=== PATIENT | female | born 1940 | race Caucasian/White ===

== ENCOUNTER → 2024-10-02 | Outpatient (CLI) | payer MEDICARE, BC, SELFPAY ==
[2024-10-02 17:42] LABS: Collection Type, Urine Clean Catch
[2024-10-02 17:56] LABS: Basophils % (Auto) 1 % (0-2.5); Eosinophils % (Auto) 1 % (0-10); Hematocrit 33.3 % (36.0-46.0); Hemoglobin 11.5 g/dL (12.0-16.0); Immature Granulocytes % (Auto) 0 % (0-0); Immature Granulocytes Auto 0.01 Thou/mm3 (0.00-0.00); Lymphocytes # (Auto) 1.5 Thou/mm3 (1.0-4.8); Lymphocytes % (Auto) 25 % (10-50); Mean Corpuscular HGB Conc 34.5 g/dl (31.0-37.0); Mean Corpuscular Hemoglobin 30.3 pg (25.0-35.0); Mean Corpuscular Volume 88 fL (80-100); Monocytes # (Auto) 0.6 Thou/mm3 (0.0-0.8); Monocytes % (Auto) 10 % (0-12); Neutrophils # (Auto) 3.8 Thou/mm3 (1.8-7.7); Neutrophils % (Auto) 64 % (37-80); Nucleated Red Blood Cell % 0 /100 WBC (0); Platelet Count 239 Thou/mm3 (140-440); RDW Standard Deviation 43.8 fL (36.4-46.3); Red Blood Count 3.79 Miln/mm3 (4.00-5.20)
[2024-10-02 18:00] LABS: Bilirubin,Urine Negative (Negative); Blood,Urine Negative (Negative); Clarity,Urine Clear (Clear/Hazy); Color,Urine Colorless (Lt Yel-Yel); Glucose, Urine Negative (Negative); Ketones,Urine Negative (Negative); Leukocyte Esterase,Urine Positive (Negative); Nitrite,Urine Negative (Negative); Protein,Urine Negative (Neg - Trace); RBC,Urine 1 /hpf (0-3); Specific Gravity,Urine 1.005 (1.001-1.035); Squamous Epithelial Cell,Urine < 1 /hpf (0-5); Urobilinogen,Urine Negative mg/dL (0.0-1.0); WBC,Urine 4 /hpf (0-5)
[2024-10-02 18:18] LABS: Alanine Aminotransferase 20 U/L (10-49); Albumin, Serum 4.6 gm/dL (3.4-4.8); Albumin/Globulin Ratio 1.8 (1.2-2.2); Alkaline Phosphatase 61 U/L (46-116); Anion Gap 4 (7-16); Aspartate Amino Transferase 26 U/L (0-34); BUN/Creatinine Ratio 18 Ratio (12-20); Bilirubin,Total 0.5 mg/dL (0.3-1.2); Blood Urea Nitrogen 20 mg/dL (9-23); Calcium 9.9 mg/dL (8.3-10.6); Calcium (Corrected) 9.9 mg/dL (8.5-10.1); Carbon Dioxide 26.3 mMol/L (20.0-31.0); Chloride 105 mMol/L (98-107); Creatinine (Component) 1.1 mg/dL (0.6-1.3); Free T4 (Free Thyroxine) 1.08 ng/dL (0.89-1.76); Globulin 2.6 gm/dL (2.3-3.5); Glucose 86 mg/dL (74-106); Osmolality,Calculated 271 (275-295); Potassium 4.5 mMol/L (3.4-5.1); Sodium 135 mMol/L (136-145); Thyroid Stimulating Hormone 13.26 uIU/mL (0.55-4.78); Total Protein 7.2 gm/dL (5.7-8.2); eGFR 49 See Note
== END | disposition home or self-care (01) ==
LOC: COPL 17:10
PROVIDERS: PCP Family Medicine; Referring Provider Family Medicine; Visit Provider Family Medicine
DX: E03.9 Hypothyroidism, unspecified (principal); M54.50 Low back pain, unspecified
CPT/HCPCS: 36415; 80053; 81001; 84439; 84443; 85025

== ENCOUNTER → 2025-02-01 | Outpatient (CLI) | payer MEDICARE, BC, SELFPAY ==
--- NOTE | 2025-02-01 15:58 | XR_ITS ---
Examination: PA lateral chest 2 views TECHNIQUE: Upright PA lateral chest 2 views Exam date and time: February 01, 2025 1659 hours Comparison April 14, 2012 INDICATIONS: Coughing one week. FINDINGS: COPD with moderate hyperexpansion Normal heart size No pneumonia or pulmonary edema IMPRESSION: COPD No pneumonia identified
== END | disposition home or self-care (01) ==
LOC: CDIM 15:51
PROVIDERS: Referring Provider Nurse Practitioner Family; Visit Provider Nurse Practitioner Family
DX: J44.9 Chronic obstructive pulmonary disease, unspecified (principal)
CPT/HCPCS: 71046

== ENCOUNTER → 2025-02-02 | Outpatient (CLI) | payer MEDICARE, BC, SELFPAY ==
[2025-02-02 11:20] LABS: Basophils % (Auto) 0 % (0-2.5); Eosinophils % (Auto) 0 % (0-10); Hematocrit 34.5 % (36.0-46.0); Hemoglobin 11.9 g/dL (12.0-16.0); Immature Granulocytes % (Auto) 0 % (0-0); Immature Granulocytes Auto 0.02 Thou/mm3 (0.00-0.00); Lymphocytes % (Auto) 27 % (10-50); Mean Corpuscular HGB Conc 34.5 g/dl (31.0-37.0); Mean Corpuscular Hemoglobin 29.8 pg (25.0-35.0); Mean Corpuscular Volume 87 fL (80-100); Monocytes # (Auto) 0.5 Thou/mm3 (0.0-0.8); Monocytes % (Auto) 6 % (0-12); Neutrophils # (Auto) 4.7 Thou/mm3 (1.8-7.7); Neutrophils % (Auto) 65 % (37-80); Nucleated Red Blood Cell % 0 /100 WBC (0); Platelet Count 231 Thou/mm3 (140-440); RDW Standard Deviation 42.1 fL (36.4-46.3); Red Blood Count 3.99 Miln/mm3 (4.00-5.20); White Blood Count 7.2 Thou/mm3 (3.6-11.0)
[2025-02-02 11:31] LABS: Glucose Estimated Average 100 mg/dL (80-131); Hemoglobin A1C 5.1 % Hgb (4.8-6.0)
[2025-02-02 11:51] LABS: Folate 14.55 ng/mL (>5.38); Vitamin B12 536 pg/mL (211-911)
[2025-02-02 11:52] LABS: Alanine Aminotransferase 12 U/L (10-49); Albumin, Serum 4.4 gm/dL (3.4-4.8); Albumin/Globulin Ratio 1.6 (1.2-2.2); Alkaline Phosphatase 47 U/L (46-116); Anion Gap 8 (7-16); Aspartate Amino Transferase 29 U/L (0-34); BUN/Creatinine Ratio 9 Ratio (12-20); Bilirubin,Total 0.8 mg/dL (0.3-1.2); Blood Urea Nitrogen 12 mg/dL (9-23); Calcium 9.7 mg/dL (8.3-10.6); Calcium (Corrected) 9.7 mg/dL (8.5-10.1); Carbon Dioxide 24.7 mMol/L (20.0-31.0); Cardiac Risk Estimate 2.7 RATIO (3.7-5.6); Chloride 101 mMol/L (98-107); Cholesterol 318 mg/dL (132-200); Creatinine (Component) 1.3 mg/dL (0.6-1.3); Free T4 (Free Thyroxine) 0.27 ng/dL (0.89-1.76); Globulin 2.8 gm/dL (2.3-3.5); Glucose 79 mg/dL (74-106); HDL Cholesterol 117 mg/dL (40-60); LDL Cholesterol,Calculated 185 mg/dL (0-130); Osmolality,Calculated 266 (275-295); Potassium 3.7 mMol/L (3.4-5.1); Sodium 134 mMol/L (136-145); Thyroid Stimulating Hormone 78.48 uIU/mL (0.55-4.78); Total Protein 7.2 gm/dL (5.7-8.2); Triglycerides 80 mg/dL (30-150); eGFR 40 See Note
== END | disposition home or self-care (01) ==
PROVIDERS: PCP Nurse Practitioner Family; Referring Provider Nurse Practitioner Family; Visit Provider Nurse Practitioner Family
DX: Z13.1 Encounter for screening for diabetes mellitus (principal); Z13.220 Encounter for screening for lipoid disorders; E03.9 Hypothyroidism, unspecified; R53.81 Other malaise
CPT/HCPCS: 36415; 80053; 80061; 82607; 82746; 83036; 84439; 84443; 85025

== ENCOUNTER 2025-03-30 16:56 | Observation (INO) | payer MEDICARE, BC, SELFPAY ==
[2025-03-30 17:13] VITALS: BP 101/65; PULSE 84; RESP 18; TEMP 37.1; O2SAT 96; BMI 26.6
--- NOTE | 2025-03-30 17:19 | XR_ITS ---
Examination: AP chest single view TECHNIQUE: AP portable semiupright chest single view Date and time: March 31, 2025 0008 hours Comparison February 01, 2025 INDICATIONS: Chest pain today. FINDINGS: Normal heart size Lungs are clear. Osseous structures are intact IMPRESSION: No active disease
--- NOTE | 2025-03-30 17:19 | EKG_ITS ---
[facility] Test Date: 2025-03-30 Pat Name: LAKISHA MCCARTY Department: Room: - Gender: Female Assistant Operator: : [id number] Requested By: Ariadna Moreno Order Number: [id number] Reading MD: Ariadna Moreno Measurements Intervals [place] Rate: 72 P: 66 MT: 189 QRS: 42 QRSD: 92 T: 17 QT: 391 QTc: 430 Interpretive Statements SINUS RHYTHM NONSPECIFIC T-WAVE ABNORMALITY No previous ECG available for comparison /store/S0/[id number].pdf
--- NOTE | 2025-03-30 17:19 | PD.EDADULT ---
ED General RME/HPI General Chief complaint: Altered Mental Status Stated complaint: ALTERED Time Seen by Provider: 03/30/25 17:19 Arrival date/time: 03/30/25 16:56 RME / HPI RME / HPI narrative: 84 year old female with history of hypothyroidism presents to the ED BIBA from Dr. Guaman's office for evaluation of altered mental status. According to medics, the patient had an appointment with Dr. Guaman today, during which office staff noted that she appeared confused. Evidently, the patient?s PCP in [place] evaluated her three days ago, diagnosed her with a urinary tract infection and prescribed antibiotics. However, the patient denies recalling that visit. Medics report that while on scene, the patient was refusing to come to the hospital and required approximately 45 minutes of convincing to exit the office and an additional 45 minutes to exit her car. She was reportedly attempting to leave the scene, and PPD was contacted where they placed patient on a 5150 hold. Upon arrival, medics administered 5 mg of IN Versed as per orders, at which point the patient became cooperative and was transported to the ED for further evaluation. While in the ED, patient states she did not want to come here because I don't like this hospital . Related Data Home Medications ?Medication ?Instructions ?Recorded ?Confirmed levothyroxine 75 mcg tablet 75 mcg PO QDAY 02/13/22 02/13/22 Previous Rx's ?Medication ?Instructions ?Recorded cefuroxime axetil 500 mg tablet 500 mg PO BID #14 tabs 01/26/24 hydrocortisone acetate 25 mg 25 mg GA BID #24 ea 02/26/24 rectal suppository (Anucort-HC) psyllium husk 3.4 gram/5.4 gram 1 tbsp PO QDAY #660 grams 02/26/24 oral powder (Metamucil) calcium polycarbophil 625 mg 1,250 mg (2 x 625 mg) PO QDAY #30 08/26/24 tablet (FiberCon) tabs lactulose 20 gram/30 mL oral 20 g (30 mL) PO BID PRN 08/26/24 solution constipation #1,200 mL Allergies Allergy/AdvReac Type Severity Reaction Status Date / Time No Known Allergies Allergy Verified 03/30/25 19:29 Review of Systems Review of Systems Narrative Review of Systems: Unobtainable, patient refused to answer questions and participate in history taking. Past Medical History Past Medical History ENDOCRINE: Positive Endocrine Disorders and Hypothyroidism Family History FAMILY HISTORY: Positive Family Respiratory Disorders (sister-TB) and Family Cardiac Disorders (father-CVA, sister-CVA) Surgical History SURGICAL: Positive Lumpectomy (right armpit-unable to remember if 15-20 years ago) Social History SMOKING STATUS: Never smoker ED Exam Narrative Physical exam: GENERAL APPEARANCE:? alert and oriented x 4, well-developed, well-nourished, no acute distress HEENT: normocephalic, atraumatic NECK: supple LUNGS: no respiratory distress, normal effort HEART: good peripheral perfusion ABDOMEN: non distended EXTREMITIES:? atraumatic NEUROLOGIC: awake; alert and oriented x4; cranial nerves II-XII grossly intact PSYCHIATRIC:? appropriate mood and affect SKIN: warm, dry, normal color; no rashes Patient refused further examination. Course Quality Measures none Orders Category Date Time Status Editor Producer NOW Care 03/30/25 17:19 Active EKG (ED ONLY) *Do not use* NOW Care 03/30/25 17:[address] head/brain wo con Stat Exams 03/30/25 17:20 Ordered EKG (ED Only) Stat Exams 03/30/25 17:19 Draft XR chest 1V portable Stat Exams 03/30/25 17:19 Ordered CBC Stat Lab 03/30/25 20:02 Completed Comprehensive Metabolic Panel Stat Lab 03/30/25 20:02 Results Free T4 (Free Thyroxine) Stat Lab 03/30/25 20:02 Results Lactate (Lactic Acid) Stat Lab 03/30/25 20:02 Results Magnesium Stat Lab 03/30/25 20:02 Results Partial Thromboplastin Time Stat Lab 03/30/25 20:02 Completed Procalcitonin Stat Lab 03/30/25 20:02 Results Prothrombin Time with INR Stat Lab 03/30/25 20:02 Completed TSH [Thyroid Stimulating Hormone] Stat Lab 03/30/25 20:02 Results Troponin I Stat Lab 03/30/25 20:02 Results UA, C/S IF [Urinalysis, C/S if Indicated] Stat Lab 03/30/25 17:19 Ordered LORazepam [Ativan Inj] Med 03/30/25 19:57 Discontinued 1 mg IM X1 ONE LORazepam [Ativan Inj] Med 03/30/25 21:09 Discontinued 1 mg IM X1 ONE Vital Signs Vital signs: Vital Signs Temperature 98.7 F 03/30/25 17:13 Pulse Rate 84 03/30/25 17:13 Respiratory Rate 18 03/30/25 17:13 Blood Pressure 101/65 03/30/25 17:13 Pulse Oximetry (%) 96 03/30/25 17:13 Oxygen Delivery Method Room Air 03/30/25 17:13 Pulse ox is 96% on room air which is adequate. Discharge Plan Prescriptions/Referrals Prescriptions/Med Rec: No Action levothyroxine 75 mcg tablet 75 mcg PO QDAY Patient Comments: TAKE 1 TABLET BY MOUTH EVERY DAY cefuroxime axetil 500 mg tablet 500 mg PO BID Qty: 14 0RF hydrocortisone acetate [Anucort-HC] 25 mg suppository 25 mg GA BID Qty: 24 0RF Metamucil 3.4 gram/5.4 gram powder 1 tbsp PO QDAY Qty: 660 0RF Rx Instructions: mix into at least 8 oz of water or juice before administering lactulose 20 gram/30 mL solution 20 g PO BID PRN (Reason: constipation) Qty: 1200 0RF calcium polycarbophil [FiberCon] 625 mg tablet 1,250 mg PO QDAY Qty: 30 0RF Referrals: No Primary/Family,Physician [Primary Care Provider] - In 1 week Patient/Caregiver Discharge Instructions Print Language: Sami MDM Narrative MDM hospital course (for use when minimal MDM required): Tracey Pierre am scribing for and in the presence of Dr. Townsend. 1815: Patient refusing head CT 1835: Patient signed out to Dr. Escalante pending labs and final disposition. Clinical Information Provided by: EMS Medical Records reviewed [facility] and EMS Medical Records additional comments: I reviewed ED visit on 09/03/2024 Meds/Rx considered, not ordered None Labs/Rad/Tests considered, not ordered None Chronic Illness/Social Conditions which may negatively complicate care or outcome(s)-explain: None or not applicable EKG EKG not done (Not done during sign out ) Labs Labs: none Lab(s) Interpretation(s): No diagnostics resulted at time of sign out Imaging Imaging interpretation: none Imaging Interpretation(s): No diagnostics resulted at time of sign out Medication Administration(s) none Medication Administration History Discontinued Medications Lorazepam (Lorazepam 2 Mg/Ml Vial) 1 mg IM X1 ONE Stop: 03/30/25 19:58 Last Admin: 03/30/25 20:25 Dose: Not Given Documented By: SF Non-Admin Reason: Cancelled by Provider Lorazepam (Lorazepam 2 Mg/Ml Vial) 1 mg IM X1 ONE Stop: 03/30/25 21:10 Diagnosis Differential Diagnosis ED Complaint MDM: UTI, sepsis, hypoglycemia
--- NOTE | 2025-03-30 18:03 | PC.NURSE ---
PT IS REFUSING VITALS, GOWN, AND LAB DRAW AT THIS TIME
--- NOTE | 2025-03-30 18:09 | PC.CC ---
Patient was BIBA on a 5150-hold by [place] [employer] for Danger to Self and Others from [facility]. It was documented on the hold that patient was confused and not making sense. Patient to have a mental health evaluation upon being medically cleared.
--- NOTE | 2025-03-30 18:36 | PD.EDADDENDU ---
Emergency Room Addendum Addendum Narrative: 1830: Care assumed from Dr. Townsend, the previous shift emergency physician. Past medical, surgical, social and family history reviewed. Vitals and home medications reviewed. Results and treatment plan discussed. I will assume the care of the patient at this time and will follow the patient, pending CT head, CXR, EKG, labs, and 5150 hold. Please refer to the emergency department record for history and examination from initial visit. Observation began at 183 and was necessary in order to determine if the patient will be medically cleared for crisis evaluation. EKG done at 1847, NSR, rate of 72, normal axis, no ectopy, no acute ischemia, according to my interpretation. 194: Spoke with Alona, the patient's daughter, on the-phone. States the patient normally is AAOx4. She states the patient has been going to the doctor every other day for the last 2 weeks and has been seeking holistic treatment for her UTI and hypothyroidism because she doesn't like taking pills. Patient's exam is unremarkable except for the patient being mildly confused and uncooperative. 2106: Patient continues to be agitated, argumentative, and screaming at staff. She initially refused vital signs and bloodwork, but eventually agreed to them being performed. Ativan 1mg IM ordered. CBC is normal, PT and INR are normal, PTT is normal, Sodium is 133, Creatinine is 1.7 (which is new), Glucose is 167, Lactic Acid is 2.2, Troponin is normal, TSH is 96.21, Free T4 is 0.35. CXR, urinalysis and other labs are pending at this time. Procalcitonin is normal, UA is positive for a mild UTI. CXR shows normal cardiac silhouette, normal sharp diaphragmatic edge, no infiltrates, normal costophrenic angles, according to my interpretation. Synthroid and Rocephin ordered. Due to the patient's significant hypothyroidism, will consult an admission to the hospitalist. 0128: Discussed case with the resident physician, attending Dr. Vaughn from Hospitalist service regarding admission. Discussed patients ED course, exam findings, labs, and radiology results. The Hospitalist will evaluate the patient for admission. 0148: The Hospitalist requests a CT head. 0230: The Hospitalist accepts the patient for admission. At this time, observation has ended. Patient was observed for 8 hours.
--- NOTE | 2025-03-30 19:35 | PC.NURSE ---
PATIENT WAS BROUGHT TO ER FOR 51/50 DUE TO AMS GD. NO TRIAGE WAS NOT DONE WHEN PATIENT WAS BROUGHT TO ER BY THE DAY SHIFT NURSE. PATIENT STATES THAT SHE IS NOT SI OR NEEDS TO BE PLACED ON A 51/50. PATIENT REFUSED TO ANSWER THE [place] SCALE. DR CROSS AT BEDSIDE ASSESSING PATIENT.
[2025-03-30 19:48] VITALS: BP 139/75; PULSE 86; RESP 16; TEMP 36.6; O2SAT 99
[2025-03-30 20:16] LABS: Lactate (Lactic Acid) 2.2 mMol/L (0.4-2.0)
[2025-03-30 20:20] LABS: Basophils % (Auto) 1 % (0-2.5); Eosinophils % (Auto) 0 % (0-10); Hematocrit 33.4 % (36.0-46.0); Hemoglobin 12.2 g/dL (12.0-16.0); Immature Granulocytes % (Auto) 0 % (0-0); Immature Granulocytes Auto 0.02 Thou/mm3 (0.00-0.00); Lymphocytes # (Auto) 1.6 Thou/mm3 (1.0-4.8); Lymphocytes % (Auto) 26 % (10-50); Mean Corpuscular HGB Conc 36.5 g/dl (31.0-37.0); Mean Corpuscular Volume 85 fL (80-100); Monocytes # (Auto) 0.5 Thou/mm3 (0.0-0.8); Monocytes % (Auto) 7 % (0-12); Neutrophils # (Auto) 4.1 Thou/mm3 (1.8-7.7); Neutrophils % (Auto) 66 % (37-80); Nucleated Red Blood Cell % 0 /100 WBC (0); Platelet Count 208 Thou/mm3 (140-440); RDW Standard Deviation 42.8 fL (36.4-46.3); Red Blood Count 3.93 Miln/mm3 (4.00-5.20); White Blood Count 6.3 Thou/mm3 (3.6-11.0)
[2025-03-30 20:35] LABS: Partial Thromboplastin Time 25.4 Seconds (22.0-36.0); Prothrombin Time 10.7 Seconds (9.0-12.2)
[2025-03-30 21:03] LABS: Alanine Aminotransferase 21 U/L (10-49); Albumin, Serum 5.1 gm/dL (3.4-4.8); Albumin/Globulin Ratio 1.7 (1.2-2.2); Alkaline Phosphatase 53 U/L (46-116); Anion Gap 13 (7-16); Aspartate Amino Transferase 35 U/L (0-34); BUN/Creatinine Ratio 8 Ratio (12-20); Bilirubin,Total 0.7 mg/dL (0.3-1.2); Blood Urea Nitrogen 14 mg/dL (9-23); Calcium 9.6 mg/dL (8.3-10.6); Calcium (Corrected) 9.6 mg/dL (8.5-10.1); Carbon Dioxide 22.5 mMol/L (20.0-31.0); Chloride 98 mMol/L (98-107); Creatinine (Component) 1.7 mg/dL (0.6-1.3); Free T4 (Free Thyroxine) 0.35 ng/dL (0.89-1.76); Glucose 167 mg/dL (74-106); Magnesium 2.3 mg/dL (1.6-2.6); Osmolality,Calculated 270 (275-295); Potassium 3.9 mMol/L (3.4-5.1); Sodium 133 mMol/L (136-145); Thyroid Stimulating Hormone 96.21 uIU/mL (0.55-4.78); Total Protein 8.1 gm/dL (5.7-8.2); Troponin I < 0.020 ng/mL (0.0-0.045); eGFR 29 See Note
[2025-03-30 21:27] LABS: Bilirubin,Urine Negative (Negative); Blood,Urine Negative (Negative); Clarity,Urine Clear (Clear/Hazy); Collection Type, Urine Catheter; Color,Urine Colorless (Lt Yel-Yel); Glucose, Urine Negative (Negative); Ketones,Urine Negative (Negative); Leukocyte Esterase,Urine Positive (Negative); Nitrite,Urine Negative (Negative); Protein,Urine Trace (Neg - Trace); RBC,Urine 0 /hpf (0-3); Specific Gravity,Urine 1.012 (1.001-1.035); Urobilinogen,Urine Negative mg/dL (0.0-1.0)
[2025-03-30] MEDS: LORazepam 2 MG/ML VIAL 1 MG IM (21:27)
[2025-03-30 21:28] LABS: Procalcitonin < 0.04 ng/ml (0.0-0.49)
[2025-03-30 21:36] LABS: Transitional Epi Cells,Urine 4 /hpf (0-5)
[2025-03-30 21:37] LABS: Culture Indicated,Urine Yes; Squamous Epithelial Cell,Urine 4 /hpf (0-5); WBC,Urine 15 /hpf (0-5)
[2025-03-30 23:11] LABS: Reflex Lactate? Y
[2025-03-30 23:12] VITALS: BP 158/96; PULSE 69; RESP 18; TEMP 36.5; O2SAT 97
[2025-03-30 23:48] LABS: Lactic Acid, 3 HR 1.3 mMol/L (0.4-2.0)
[2025-03-31] VITALS (9 sets, daily range): BP systolic 114–166; BP diastolic 65–96; PULSE 60–82; RESP 12–97; TEMP 36.2–36.6; O2SAT 96–99; BMI 19.3
[2025-03-31] MEDS: LEVOTHYROXINE INJ 100 mCg VIAL IV (02:33)
[2025-03-31] MEDS: cefTRIAXone/D5w 1gm IV premix 1 GM/50 ML BAG IV ×2 (02:37→21:30)
--- NOTE | 2025-03-31 03:49 | ESHP_ITS ---
Documentation for date of: 03/31/25 [facility] History of Present Illness History of present illness: 84 y/o female patient with significant medical history for hypothyroidism and constipation was BIBA from Dr. Guaman's office for AMS. Patient was recently started on Bactrim for UTI on 03/27/25. Per medic, patient was reportedly attempting to leave the scene, [employer] was contacted and patient was placed on 5150. Upon arrival, patient required IV versed in order to become cooperative. At baseline patient is AOx3, for the last few weeks she has been seeking holistic treatment and had stopped taking her medication Levothyroxine. ED vitals were unremarkable. Labs were significant for Sodium is 133, Creatinine is 1.7, Glucose is 167, Lactic Acid is 2.2, Troponin negative, TSH 96.21, Free T4 0.35. UA showed mild UTI with leukocyte esterase+ and urine WBC 15. EKG and CXR were unremarkable. Head CT pending. Patient will be admitted for acute encephalopathy. Medical Hx: hypothyroidism, constipation Medications (need reconciliation): calcium, lactulose, levothyroxine, psyllium husk Surgical Hx: lumpectomy > 15 years ago Social Hx: denied smoking cigarettes, drinking alcohol or using other illicit drugs Code Status: full code Review of Systems Review of Systems Systems Reviewed: All systems reviewed, normal except as documented Exam Vital Signs Temp Pulse Resp BP Pulse Ox O2 Del Method 97.9 F 60 14 155/86 H 98 Room Air 03/31/25 03:36 03/31/25 03:36 03/31/25 03:36 03/31/25 03:36 03/31/25 03:36 03/31/25 03:36 Narrative Exam Constitutional: well-developed, well-nourished, in no acute distress, lying in bed HEENT: NCAT, EOMI, reactive round pupils b/l, patent nares b/l, moist mucous membranes Lung: CTAB, no wheezing, no rhonchi Heart: Regular S1S2, no murmurs, gallops, or rubs Abdomen: Soft, non-distended, non-tender, bowel sounds present throughout Extremities: No cyanosis, clubbing, or edema, LE pulses present b/l Neurologic: No focal sensory or motor deficits noted, AOx2, appropriate affect Skin: Warm, dry, no lesions or rashes noted Results: Labs 03/30/25 20:02 03/30/25 20:02 Labs: Short CBC 03/30/25 Range/Units 20:02 WBC 6.3 (3.6-11.0) Thou/mm3 Hgb 12.2 (12.0-16.0) g/dL Hct 33.4 L (36.0-46.0) % Plt Count 208 (140-440) Thou/mm3 BMP 03/30/25 20:02 Sodium 133 L Potassium 3.9 Chloride 98 Carbon Dioxide 22.5 BUN 14 Creatinine 1.7 H Glucose 167 H Calcium 9.6 Cardiac Enzymes 03/30/25 Range/Units 20:02 Troponin I < 0.020 (0.0-0.045) ng/mL Liver Function 03/30/25 Range/Units 20:02 Total Bilirubin 0.7 (0.3-1.2) mg/dL AST 35 H (0-34) U/L ALT 21 (10-49) U/L Alkaline Phosphatase 53 (46-116) U/L Albumin 5.1 H (3.4-4.8) gm/dL Urine 03/30/25 Range/Units 17:19 Urine Color Colorless A (Lt Yel-Yel) Urine Clarity Clear (Clear/Hazy) Urine pH 7.0 (5.0-7.0) Ur Specific [place] 1.012 (1.001-1.035) Urine Protein Trace (Neg - Trace) Urine Glucose (UA) Negative (Negative) Quality Measures Quality Measures none Advance care planning discussed with:: other Medications Home Medications and Allergies Home Medications ?Medication ?Instructions ?Recorded ?Confirmed ?Type levothyroxine 75 mcg tablet 75 mcg PO QDAY 02/13/22 History Allergies Allergy/AdvReac Type Severity Reaction Status Date / Time No Known Allergies Allergy Verified 03/30/25 19:29 Visit Medications Acetaminophen (Acetaminophen 325 Mg Tablet) 650 mg PO Q6H PRN PRN Reason: Fever >101.5 Stop: 04/30/25 02:48 Bisacodyl (Bisacodyl 5 Mg Tabec) 10 mg PO QDAY [facility]; Protocol Stop: 04/30/25 08:59 Docusate Sodium (Docusate Sod 100 Mg Capsule) 100 mg PO QDAY [facility]; Protocol Stop: 04/30/25 08:59 Heparin Sodium (Porcine) (Heparin Sod Inj 5000 Unit/Ml Vial) 5,000 unit SC Q8HR [facility] Stop: 04/14/25 05:59 Ceftriaxone Sodium 1 gm/ (Sodium Chloride) 50 mls @ 100 mls/hr IV QDAY@2100 [facility] Stop: 04/07/25 20:59 Levothyroxine Sodium (Levothyroxine Sodium 25 Mcg Tablet) 50 mcg PO QDAY [facility] Stop: 05/01/25 08:59 Ondansetron HCl (Ondansetron Inj 2 Mg/Ml Inj 2 Ml) 4 mg IV Q6H PRN; Protocol PRN Reason: NAUSEA OR VOMITING Stop: 04/30/25 02:48 Pantoprazole Sodium (Pantoprazole 40 Mg Tablet) 40 mg PO QDAY [facility] Stop: 04/30/25 08:59 Discontinued Medications Ceftriaxone Sodium/Dextrose (Rocephin/D5w 1gm Iv Premix) 1 gm in 50 mls @ 100 mls/hr IV X1 ONE Stop: 03/31/25 01:57 Last Infusion: 03/31/25 03:26 Dose: Infused Levothyroxine Sodium (Levothyroxine Sodium 125 Mcg Tablet) 125 mcg PO X1 ONE Stop: 03/31/25 01:25 Last Admin: 03/31/25 02:41 Dose: Not Given Levothyroxine Sodium (Levothyroxine Inj 100 Mcg Vial) 100 mcg IV X1 ONE Stop: 03/31/25 01:38 Last Admin: 03/31/25 02:33 Dose: 100 mcg Lorazepam (Lorazepam 2 Mg/Ml Vial) 1 mg IM X1 ONE Stop: 03/30/25 19:58 Last Admin: 03/30/25 20:25 Dose: Not Given Lorazepam (Lorazepam 2 Mg/Ml Vial) 1 mg IM X1 ONE Stop: 03/30/25 21:10 Last Admin: 03/30/25 21:27 Dose: 1 mg Assessment & Plan Plan 84 y/o female patient with significant medical history for hypothyroidism and constipation was BIBA from Dr. Guaman's office for AMS. Patient was recently started on Bactrim for UTI on 03/27/25. Per medic, patient was reportedly attempting to leave the scene, [employer] was contacted and patient was placed on 5150. Patient will be admitted for acute encephalopathy. #Acute encephalopathy, likely secondary to #Hypothyroidism #UTI Plan: -Observation admit -Head CT pending -Neurocheck Q4H -Start levothyroxine 50 mcg Qday, consider increasing dose -Start Rocephin IV -UCX pending -Crisis evaluation when medically cleared #Chronic constipation Plan: -Start scheduled Dulcolax and Colace Health Maintenance Dispo: Patient admitted for AMS 2/2 to hypothyroidism Diet: Regular diet DVT/PPx: Heparin GI ppx: Protonix Lines: PIV Code Status:Full Code Attending Provider Attestation/Addendum I have examined the patient, reviewed labs and imaging findings, discussed the case with the resident(s), and reviewed entered orders. I agree with the plan of care as outlined in this note, with these additional summaries/recommendations: 84-year-old female with past medical history of chronic constipation, hemorrhoids, hypothyroidism (noncompliant with medications) presented to the ED with chief complaint of altered mental status/agitation sent in by PCP. Patient was placed on 5150 hold after being acutely altered. She is A/O x 2 at the time of my evaluation with no focal deficits, likely the result of delirium. CT head pending. She was placed on 5150 hold. Labs showed TSH of 96 with free T4.35 and MARIBELL. Patient will be admitted for further workup and management of MARIBELL and AMS. Greg Vaughn MD
[2025-03-31 07:26] LABS: Basophils % (Auto) 1 % (0-2.5); Eosinophils % (Auto) 1 % (0-10); Hematocrit 30.8 % (36.0-46.0); Hemoglobin 11.3 g/dL (12.0-16.0); Immature Granulocytes % (Auto) 0 % (0-0); Immature Granulocytes Auto 0.01 Thou/mm3 (0.00-0.00); Lymphocytes # (Auto) 1.4 Thou/mm3 (1.0-4.8); Lymphocytes % (Auto) 25 % (10-50); Mean Corpuscular HGB Conc 36.7 g/dl (31.0-37.0); Mean Corpuscular Hemoglobin 31.1 pg (25.0-35.0); Mean Corpuscular Volume 85 fL (80-100); Monocytes # (Auto) 0.5 Thou/mm3 (0.0-0.8); Monocytes % (Auto) 9 % (0-12); Neutrophils # (Auto) 3.5 Thou/mm3 (1.8-7.7); Neutrophils % (Auto) 64 % (37-80); Nucleated Red Blood Cell % 0 /100 WBC (0); Platelet Count 197 Thou/mm3 (140-440); RDW Standard Deviation 42.4 fL (36.4-46.3); Red Blood Count 3.63 Miln/mm3 (4.00-5.20); White Blood Count 5.4 Thou/mm3 (3.6-11.0)
--- NOTE | 2025-03-31 07:38 | PC.NURSE ---
PER [employer]LECTIONS ASSOCIATE, 5150 HOLD IS RESCINDED DUE TO PT BEING ADMITTED
[2025-03-31 07:51] LABS: Alanine Aminotransferase 19 U/L (10-49); Albumin, Serum 4.3 gm/dL (3.4-4.8); Albumin/Globulin Ratio 1.6 (1.2-2.2); Alkaline Phosphatase 46 U/L (46-116); Anion Gap 9 (7-16); Aspartate Amino Transferase 32 U/L (0-34); BUN/Creatinine Ratio 9 Ratio (12-20); Bilirubin,Total 0.6 mg/dL (0.3-1.2); Blood Urea Nitrogen 13 mg/dL (9-23); Calcium 9.1 mg/dL (8.3-10.6); Calcium (Corrected) 9.1 mg/dL (8.5-10.1); Carbon Dioxide 24.6 mMol/L (20.0-31.0); Chloride 104 mMol/L (98-107); Creatinine (Component) 1.4 mg/dL (0.6-1.3); Estimated Creatinine Clearance 30.4 mL/min (>60); Globulin 2.7 gm/dL (2.3-3.5); Glucose 77 mg/dL (74-106); Magnesium 2.2 mg/dL (1.6-2.6); Osmolality,Calculated 274 (275-295); Sodium 138 mMol/L (136-145); eGFR 37 See Note
--- NOTE | 2025-03-31 09:02 | PC.CC ---
Patient's 5150-hold was rescinded as she is a medical admit.The rescinded hold was placed in patient's chart. ASW notified via email Care Integration team that patient will need a mental health evaluation upon being medically cleared.
--- NOTE | 2025-03-31 09:28 | PC.NURSE ---
PHARMACY CONTACTED TO BRING bisacodyl
[2025-03-31] MEDS: HYDROCORTISONE SOD SUCC INJ 100 MG VIAL IV ×2 (09:34→18:06)
[2025-03-31] MEDS: DOCUSATE SOD 100 MG CAPSULE PO (09:40)
[2025-03-31] MEDS: PANTOPRAZOLE 40 MG TABLET PO (09:40)
--- NOTE | 2025-03-31 10:07 | PC.NURSE ---
PT REPORTS THAT SHE IS NOT CONFUSED.
--- NOTE | 2025-03-31 10:26 | ESPR_ITS ---
<Statement entered by Uriel Gomez MD - 04/01/25 17:49> Patient was seen and examined at bedside, agree on the assessment and plan on this note. - Patient's plan and care discussed with my attending, Dr. Arlette Gomez MD Internal Medicine PGY-2 Documentation for date of: 03/31/25 Subjective Subjective Interval history: Patient examined at bedside today. No acute overnight events. Patient reports she is wondering why she is still here. She is requesting to take her Synthroid oral. She says that she has the right to refuse some things. She also says that she stopped taking her Synthroid as she wants to take other natural things including fruits from her garden . She said she stopped taking the Synthroid because it started to make her anxious. No other complaints this time. Exam Vital Signs Temp Pulse Resp BP Pulse Ox O2 Del Method 97.9 F 61 18 142/80 H 97 Room Air 03/31/25 07:40 03/31/25 07:40 03/31/25 07:40 03/31/25 07:40 03/31/25 07:40 03/31/25 07:40 Narrative Exam General: AAOx3, NAD, older female, slightly unpleasant, overweight HEENT: Moist mucous membranes, conjunctiva clear, EOMI, PERRLA, Cardiovascular: S1, S2, radial pulses +2 bilat, RRR Pulmonary: CTAB bilat no cough, no wheezing GI: No tenderness to light or deep palpitation, no guarding, rigidity, rebound tenderness or distension Extremities: No presence of trace or pitting edema in lower extremities bilaterally, dorsalis pedis pulses +2 bilaterally Neuro: AAOx3, no focal motor or sensory deficits in the UE or LE bilat Psych: Uncooperative Objective Labs 04/01/25 05:34 04/01/25 05:34 Labs: Laboratory Results - last 24 hr 03/30/25 03/30/25 03/30/25 17:19 20:02 23:44 WBC 6.3 RBC 3.93 L Hgb 12.2 Hct 33.4 L MCV 85 MCH 31.0 MCHC 36.5 RDW Std Deviation 42.8 Plt Count 208 Neut % (Auto) 66 Lymph % (Auto) 26 [place] % (Auto) 7 Eos % (Auto) 0 Baso % (Auto) 1 Neut # (Auto) 4.1 Lymph # (Auto) 1.6 [place] # (Auto) 0.5 Eos # (Auto) 0.0 Baso # (Auto) 0.0 Immature Gran # (Auto) 0.02 H Absolute Nucleated RBC 0.00 Immature Gran % 0 Nucleated RBC % 0 PT 10.7 INR 1.0 APTT 25.4 Sodium 133 L Potassium 3.9 Chloride 98 Carbon Dioxide 22.5 Anion Gap 13 BUN 14 Creatinine 1.7 H Estim Creat Clear Calc 25.0 L eGFR 29 L BUN/Creatinine Ratio 8 L Glucose 167 H Calculated Osmolality 270 L Lactic Acid 2.2 H 1.3 Calcium 9.6 Corrected Calcium 9.6 Magnesium 2.3 Total Bilirubin 0.7 AST 35 H ALT 21 Alkaline Phosphatase 53 Troponin I < 0.020 Total Protein 8.1 Albumin 5.1 H Globulin 3.0 Albumin/Globulin Ratio 1.7 Lipase Cancelled Procalcitonin < 0.04 TSH 96.21 H* Free T4 0.35 L Ur Collection Type Catheter Urine Color Colorless A Urine Clarity Clear Urine pH 7.0 Ur Specific [place] 1.012 Urine Protein Trace Urine Glucose (UA) Negative Urine Ketones Negative Urine Blood Negative Urine Nitrite Negative Urine Bilirubin Negative Urine Urobilinogen (Auto) Negative Ur Leukocyte Esterase Positive Urine RBC 0 Urine WBC 15 H Ur Squamous Epith Cells 4 Ur Transition Epith Cell 4 Urine Bacteria None Ur Culture Indicated? Yes 03/31/25 06:52 WBC 5.4 RBC 3.63 L Hgb 11.3 L Hct 30.8 L MCV 85 MCH 31.1 MCHC 36.7 RDW Std Deviation 42.4 Plt Count 197 Neut % (Auto) 64 Lymph % (Auto) 25 [place] % (Auto) 9 Eos % (Auto) 1 Baso % (Auto) 1 Neut # (Auto) 3.5 Lymph # (Auto) 1.4 [place] # (Auto) 0.5 Eos # (Auto) 0.0 Baso # (Auto) 0.0 Immature Gran # (Auto) 0.01 H Absolute Nucleated RBC 0.00 Immature Gran % 0 Nucleated RBC % 0 PT INR APTT Sodium 138 Potassium 4.0 Chloride 104 Carbon Dioxide 24.6 Anion Gap 9 BUN 13 Creatinine 1.4 H Estim Creat Clear Calc 30.4 L eGFR 37 L BUN/Creatinine Ratio 9 L Glucose 77 D Calculated Osmolality 274 L Lactic Acid Calcium 9.1 Corrected Calcium 9.1 Magnesium 2.2 Total Bilirubin 0.6 AST 32 ALT 19 Alkaline Phosphatase 46 Troponin I Total Protein 7.0 Albumin 4.3 D Globulin 2.7 Albumin/Globulin Ratio 1.6 Lipase Procalcitonin TSH Free T4 Ur Collection Type Urine Color Urine Clarity Urine pH Ur Specific [place] Urine Protein Urine Glucose (UA) Urine Ketones Urine Blood Urine Nitrite Urine Bilirubin Urine Urobilinogen (Auto) Ur Leukocyte Esterase Urine RBC Urine WBC Ur Squamous Epith Cells Ur Transition Epith Cell Urine Bacteria Ur Culture Indicated? Quality Measures Quality Measures none Advance care planning discussed with:: patient Assessment & Plan Assessment Current Active Medications: Generic Name Dose Route Start Last Admin Trade Name Freq PRN Reason Stop Dose Admin Acetaminophen 650 mg 03/31/25 02:49 Acetaminophen 325 Mg Tablet PO 04/30/25 02:48 Q6H PRN Fever >101.5 Bisacodyl 10 mg 03/31/25 09:00 Bisacodyl 5 Mg Tabec PO 04/30/25 08:59 QDAY EZE Protocol Docusate Sodium 100 mg 03/31/25 09:00 03/31/25 09:40 Docusate Sod 100 Mg Capsule PO 04/30/25 08:59 100 mg QDAY EZE Administration Protocol Heparin Sodium (Porcine) 5,000 unit 03/31/25 06:00 03/31/25 06:37 Heparin Sod Inj 5000 Unit/Ml Vial SC 04/14/25 05:59 Not Given Q8HR EZE Hydrocortisone Sodium Succinate 100 mg 03/31/25 08:15 03/31/25 09:34 Hydrocortisone Sod Succ Inj 100 Mg Vial IV 04/30/25 08:14 100 mg Q8H EZE Administration Ceftriaxone Sodium 1 gm/ 50 mls @ 100 mls/hr 03/31/25 21:00 Sodium Chloride IV 04/07/25 20:59 QDAY@2100 ZEE Ondansetron HCl 4 mg 03/31/25 02:49 Ondansetron Inj 2 Mg/Ml Inj 2 Ml IV 04/30/25 02:48 Q6H PRN NAUSEA OR VOMITING Protocol Pantoprazole Sodium 40 mg 03/31/25 09:00 03/31/25 09:40 Pantoprazole 40 Mg Tablet PO 04/30/25 08:59 40 mg QDAY EZE Administration Plan Assessment Yasmeen is a 84 y/o female patient with significant medical history for hypothyroidism and constipation who was admitted for acute encephalopathy and was put on 5150 hold. #Acute encephalopathy, resolved #Hypothyroidism Patient had 5150 hold on them due to acute encephalopathy Head CT negative Patient's encephalopathy is resolved, however she is not wanting to follow our recommendations at this time Risk and benefits were discussed with patient in regards to following our recommendations, however patient continues to refuse taking some medicines 5150 removed at this time There is concern for myxedema coma at this time, however patient's encephalopathy has resolved, however patient's remains to be vitally stable, temperature within normal limits There are pre-symptoms to myxedema coma such as mood changes, however this has resolved at this time but patient continues to be uncooperative Patient has had elevated TSH in the past, patient must have had a long period of time in which she has been not taking her Synthroid Plan: -Neurocheck Q4H -IV Synthroid 200 mcg now, will transition to oral ?Hydrocortisone 100 mg IV every 8 hours -Crisis evaluation when medically cleared ?Will trend T4 #Chronic constipation Plan: ?Continue Dulcolax and Colace #Health Maintenance Disposition:Med-telemetry DVT prophylaxis: Heparin GI prophylaxis: Protonix Diet: Regular CODE STATUS: Full Patient seen and care discussed with my senior resident, Dr. Gomez, and my attending physician, Dr. Arlette Muir, PGY-1 Attending Provider Attestation/Addendum I have examined the patient, reviewed labs and imaging findings, discussed the case with the resident(s), and reviewed entered orders. I agree with the plan of care as outlined in this note, with these additional summaries/recommendations: Patient seen at bedside. Patient was admitted overnight for acute encephalopathy which has now resolved. She is alert and oriented x 3. Although patient does appear very frustrated that she was brought to the hospital. There was concern about myxedema coma on admission given her severely abnormal thyroid panel and altered mental status. TSH 96.21 and free T4 0.35. Patient received IV levothyroxine but now refusing. Patient likely did receive 1 dose of IV levothyroxine and we will repeat free T4 and TSH in AM. We will likely transition to oral levothyroxine tomorrow. Patient also noted to have urinary tract infection currently receiving IV Rocephin. Urine culture pending. Patient will remain on 5150 hold until medically cleared. Order physical therapy evaluation. Repeat hematology and chemistry panel in AM. Please see residents note for additional details and management. Dr. Arlette MD
--- NOTE | 2025-03-31 10:37 | PC.NURSE ---
DR. TROY CONTACTED TO SEE IF THEY WANT TO CONTINUE LEVOTHYROXINE. DR. CLAUDIA MCKEON TO CONTINUE MED
--- NOTE | 2025-03-31 10:44 | PC.NURSE ---
PHARMACY CONTACTED AGAIN TO BRING bisacodyl AND LEVOTHRYOXINE
[2025-03-31] MEDS: bisacodyL 5 MG TABEC 10 MG PO (11:01)
--- NOTE | 2025-03-31 11:01 | PC.NURSE ---
PT REFUSED LEVOTHRYOXINE. PT EDUCATED ON THE PURPOSE OF MED.
--- NOTE | 2025-03-31 11:02 | PC.NURSE ---
pt refused the levothroyxine. provider notified
--- NOTE | 2025-03-31 12:31 | PC.NURSE ---
PT IS REQUESTED TO TAKE HOME MEDS. PT EDUCATED ON [facility] POLICY REGARDING TAKING OWN MEDS. RN ASKED PROVIDER ABOUT HOME MEDS. NO NEW ORDERS
[2025-03-31] MEDS: HEPARIN SOD INJ 5000 UNIT/ML VIAL SC (15:24)
--- NOTE | 2025-03-31 15:45 | PC.NURSE ---
urszula (daughter) called for update
[2025-04-01] VITALS (9 sets, daily range): BP systolic 129–146; BP diastolic 71–87; PULSE 58–84; RESP 12–99; TEMP 36–36.6; O2SAT 96–100; BMI 19.3
[2025-04-01 06:08] LABS: Basophils % (Auto) 0 % (0-2.5); Eosinophils % (Auto) 0 % (0-10); Hematocrit 34.3 % (36.0-46.0); Immature Granulocytes % (Auto) 0 % (0-0); Immature Granulocytes Auto 0.04 Thou/mm3 (0.00-0.00); Lymphocytes # (Auto) 1.1 Thou/mm3 (1.0-4.8); Lymphocytes % (Auto) 13 % (10-50); Mean Corpuscular Hemoglobin 30.8 pg (25.0-35.0); Mean Corpuscular Volume 88 fL (80-100); Monocytes # (Auto) 0.4 Thou/mm3 (0.0-0.8); Monocytes % (Auto) 5 % (0-12); Neutrophils # (Auto) 7.3 Thou/mm3 (1.8-7.7); Neutrophils % (Auto) 82 % (37-80); Nucleated Red Blood Cell % 0 /100 WBC (0); Platelet Count 212 Thou/mm3 (140-440); Red Blood Count 3.89 Miln/mm3 (4.00-5.20); White Blood Count 8.9 Thou/mm3 (3.6-11.0)
[2025-04-01 06:22] LABS: Alanine Aminotransferase 21 U/L (10-49); Albumin, Serum 4.4 gm/dL (3.4-4.8); Albumin/Globulin Ratio 1.6 (1.2-2.2); Alkaline Phosphatase 47 U/L (46-116); Anion Gap 5 (7-16); Aspartate Amino Transferase 33 U/L (0-34); BUN/Creatinine Ratio 10 Ratio (12-20); Bilirubin,Total 0.7 mg/dL (0.3-1.2); Blood Urea Nitrogen 14 mg/dL (9-23); Calcium 9.9 mg/dL (8.3-10.6); Calcium (Corrected) 9.9 mg/dL (8.5-10.1); Carbon Dioxide 25.3 mMol/L (20.0-31.0); Chloride 102 mMol/L (98-107); Creatinine (Component) 1.4 mg/dL (0.6-1.3); Estimated Creatinine Clearance 25.2 mL/min (>60); Globulin 2.7 gm/dL (2.3-3.5); Glucose 106 mg/dL (74-106); Magnesium 2.2 mg/dL (1.6-2.6); Osmolality,Calculated 265 (275-295); Phosphorous 2.9 mg/dL (2.4-5.1); Potassium 4.2 mMol/L (3.4-5.1); Sodium 132 mMol/L (136-145); Total Protein 7.1 gm/dL (5.7-8.2); eGFR 37 See Note
--- NOTE | 2025-04-01 07:17 | PD.RESPRO ---
Documentation for date of: 04/01/25 Subjective Subjective Interval history: Pt examined at bedside today. No acute overnight events. She reports she is wondering why she is still here. She reports she wants to take synthroid by mouth. She has no other complaints at this time. Exam Vital Signs Temp Pulse Resp BP Pulse Ox O2 Del Method 97.9 F 58 L 18 129/81 100 Room Air 04/01/25 04:00 04/01/25 04:00 04/01/25 04:00 04/01/25 04:00 04/01/25 04:00 04/01/25 04:00 Narrative Exam General: AAOx3, NAD, older female, slightly unpleasant, overweight HEENT: Moist mucous membranes, conjunctiva clear, EOMI, PERRLA, Cardiovascular: S1, S2, radial pulses +2 bilat, RRR Pulmonary: CTAB bilat no cough, no wheezing GI: No tenderness to light or deep palpitation, no guarding, rigidity, rebound tenderness or distension Extremities: No presence of trace or pitting edema in lower extremities bilaterally, dorsalis pedis pulses +2 bilaterally Neuro: AAOx3, no focal motor or sensory deficits in the UE or LE bilat Psych: Uncooperative Objective Labs 04/02/25 05:37 04/01/25 05:34 Labs: Laboratory Results - last 24 hr 03/31/25 04/01/25 06:52 05:34 WBC 5.4 8.9 D RBC 3.63 L 3.89 L Hgb 11.3 L 12.0 Hct 30.8 L 34.3 L MCV 85 88 MCH 31.1 30.8 MCHC 36.7 35.0 RDW Std Deviation 42.4 44.0 Plt Count 197 212 Neut % (Auto) 64 82 H Lymph % (Auto) 25 13 [place] % (Auto) 9 5 Eos % (Auto) 1 0 Baso % (Auto) 1 0 Neut # (Auto) 3.5 7.3 Lymph # (Auto) 1.4 1.1 [place] # (Auto) 0.5 0.4 Eos # (Auto) 0.0 0.0 Baso # (Auto) 0.0 0.0 Immature Gran # (Auto) 0.01 H 0.04 H Absolute Nucleated RBC 0.00 0.00 Immature Gran % 0 0 Nucleated RBC % 0 0 Sodium 138 132 L Potassium 4.0 4.2 Chloride 104 102 Carbon Dioxide 24.6 25.3 Anion Gap 9 5 L BUN 13 14 Creatinine 1.4 H 1.4 H Estim Creat Clear Calc 30.4 L 25.2 L eGFR 37 L 37 L BUN/Creatinine Ratio 9 L 10 L Glucose 77 D 106 Calculated Osmolality 274 L 265 L Calcium 9.1 9.9 Corrected Calcium 9.1 9.9 Phosphorus 2.9 Magnesium 2.2 2.2 Total Bilirubin 0.6 0.7 AST 32 33 ALT 19 21 Alkaline Phosphatase 46 47 Total Protein 7.0 7.1 Albumin 4.3 D 4.4 Globulin 2.7 2.7 Albumin/Globulin Ratio 1.6 1.6 Free T4 0.40 L Quality Measures Quality Measures none Advance care planning discussed with:: patient Assessment & Plan Assessment Current Active Medications: Generic Name Dose Route Start Last Admin Trade Name Freq PRN Reason Stop Dose Admin Acetaminophen 650 mg 03/31/25 02:49 Acetaminophen 325 Mg Tablet PO 04/30/25 02:48 Q6H PRN Fever >101.5 Bisacodyl 10 mg 03/31/25 09:00 03/31/25 11:01 Bisacodyl 5 Mg Tabec PO 04/30/25 08:59 10 mg QDAY [facility] Administration Protocol Docusate Sodium 100 mg 03/31/25 09:00 03/31/25 09:40 Docusate Sod 100 Mg Capsule PO 04/30/25 08:59 100 mg QDAY [facility] Administration Protocol Heparin Sodium (Porcine) 5,000 unit 03/31/25 06:00 04/01/25 05:25 Heparin Sod Inj 5000 Unit/Ml Vial SC 04/14/25 05:59 Not Given Q8HR [facility] Ceftriaxone Sodium/Dextrose 1 gm in 50 mls @ 100 mls/hr 04/01/25 21:00 Rocephin/D5w 1gm Iv Premix IV 04/08/25 20:59 HS [facility] Ondansetron HCl 4 mg 03/31/25 02:49 Ondansetron Inj 2 Mg/Ml Inj 2 Ml IV 04/30/25 02:48 Q6H PRN NAUSEA OR VOMITING Protocol Pantoprazole Sodium 40 mg 03/31/25 09:00 03/31/25 09:40 Pantoprazole 40 Mg Tablet PO 04/30/25 08:59 40 mg QDAY [facility] Administration Plan Assessment Yasmeen is a 84 y/o female patient with significant medical history for hypothyroidism and constipation who was admitted for acute encephalopathy and was put on 5150 hold. #Acute encephalopathy, resolved #Hypothyroidism Patient had 5150 hold on them due to acute encephalopathy Head CT negative Patient's encephalopathy is resolved, however she is not wanting to follow our recommendations at this time Risk and benefits were discussed with patient in regards to following our recommendations, however patient continues to refuse taking some medicines 5150 removed at this time There is concern for myxedema coma at this time, however patient's encephalopathy has resolved, however patient's remains to be vitally stable, temperature within normal limits There are pre-symptoms to myxedema coma such as mood changes, however this has resolved at this time but patient continues to be uncooperative Patient has had elevated TSH in the past, patient must have had a long period of time in which she has been not taking her Synthroid Pt will likely go home with Synthroid 50 mcg Low suspcision for myxadema coma, will d/c steroid T4 0.3 -> 0.4 Plan: -Neurocheck Q4H -Synthroid 100 mcg PO -D/c Hydrocortisone -Crisis evaluation when medically cleared ?T4 and TSH tomorrow #Chronic constipation Plan: ?Continue Dulcolax and Colace #Health Maintenance Disposition:Med-telemetry DVT prophylaxis: Heparin GI prophylaxis: Protonix Diet: Regular CODE STATUS: Full Patient seen and care discussed with my attending physician, Dr. Arlette Muir, PGY-1 Attending Provider Attestation/Addendum I have examined the patient, reviewed labs and imaging findings, discussed the case with the resident(s), and reviewed entered orders. I agree with the plan of care as outlined in this note. Dr. Arlette MD
[2025-04-01] MEDS: PANTOPRAZOLE 40 MG TABLET PO (08:07)
[2025-04-01] MEDS: LEVOTHYROXINE SODIUM 25 MCG TABLET 75 MCG PO (08:07)
[2025-04-01] MEDS: bisacodyL 5 MG TABEC 10 MG PO (08:07)
[2025-04-01] MEDS: DOCUSATE SOD 100 MG CAPSULE PO (08:11)
--- NOTE | 2025-04-01 08:47 | PC.SS ---
SS met with patient at bedside, she confirmed her demographic information. Patient stated she lives alone and her daughter Dennis Thao [phone] is her alt. decisionmaker. Patient states she is independent with ADL completion and ambulation as well. Preferred pharmacy: [facility]. PCP: Dr. Nav Cruz. Patient will need a mental health evaluation once she is medically clear. Hold was rescinded due to patient being admitted. Discharge plan: Pending. Patient would like to return home. Next of kin: Daughter Dennis Thao [phone]
--- NOTE | 2025-04-01 16:02 | PC.SS ---
Electronic Gluing Machine Operator (ANTHONY) Iveth met with patient's daughter, Dennis who had concerns regarding patient's confusion while driving, uncompliant with thyroid medications. Dennis was requesting if physicians could evaluate patient to see if it is safe for patient to continue to drive. Dennis was also explained the legal process of 5150 holds, and how to proceed with mental health evaluations in the hospital. Patient is pending medical clearance for [facility]HE.
[2025-04-01] MEDS: cefTRIAXone/D5w 1gm IV premix 1 GM/50 ML BAG IV (21:17)
[2025-04-02] VITALS (8 sets, daily range): BP systolic 108–131; BP diastolic 50–72; PULSE 58–81; RESP 15–98; TEMP 36.1–36.8; O2SAT 97–100; BMI 19.3
[2025-04-02 06:56] LABS: Basophils % (Auto) 0 % (0-2.5); Eosinophils # (Auto) 0.1 Thou/mm3 (0.0-0.5); Eosinophils % (Auto) 1 % (0-10); Hematocrit 34.1 % (36.0-46.0); Immature Granulocytes % (Auto) 0 % (0-0); Immature Granulocytes Auto 0.01 Thou/mm3 (0.00-0.00); Lymphocytes # (Auto) 2.1 Thou/mm3 (1.0-4.8); Lymphocytes % (Auto) 27 % (10-50); Mean Corpuscular HGB Conc 35.2 g/dl (31.0-37.0); Mean Corpuscular Hemoglobin 31.3 pg (25.0-35.0); Mean Corpuscular Volume 89 fL (80-100); Monocytes # (Auto) 0.6 Thou/mm3 (0.0-0.8); Monocytes % (Auto) 8 % (0-12); Neutrophils # (Auto) 4.8 Thou/mm3 (1.8-7.7); Neutrophils % (Auto) 63 % (37-80); Nucleated Red Blood Cell % 0 /100 WBC (0); Platelet Count 199 Thou/mm3 (140-440); RDW Standard Deviation 44.6 fL (36.4-46.3); Red Blood Count 3.84 Miln/mm3 (4.00-5.20); White Blood Count 7.5 Thou/mm3 (3.6-11.0)
[2025-04-02 07:43] LABS: Alanine Aminotransferase 20 U/L (10-49); Albumin, Serum 4.1 gm/dL (3.4-4.8); Albumin/Globulin Ratio 1.6 (1.2-2.2); Alkaline Phosphatase 45 U/L (46-116); Anion Gap 6 (7-16); Aspartate Amino Transferase 33 U/L (0-34); BUN/Creatinine Ratio 12 Ratio (12-20); Bilirubin,Total 0.6 mg/dL (0.3-1.2); Blood Urea Nitrogen 15 mg/dL (9-23); Carbon Dioxide 25.5 mMol/L (20.0-31.0); Chloride 102 mMol/L (98-107); Creatinine (Component) 1.3 mg/dL (0.6-1.3); Estimated Creatinine Clearance 27.2 mL/min (>60); Free T4 (Free Thyroxine) 0.49 ng/dL (0.89-1.76); Globulin 2.6 gm/dL (2.3-3.5); Glucose 76 mg/dL (74-106); Magnesium 1.9 mg/dL (1.6-2.6); Osmolality,Calculated 266 (275-295); Phosphorous 2.9 mg/dL (2.4-5.1); Potassium 4.1 mMol/L (3.4-5.1); Sodium 133 mMol/L (136-145); Thyroid Stimulating Hormone 103.33 uIU/mL (0.55-4.78); Total Protein 6.7 gm/dL (5.7-8.2); eGFR 40 See Note
--- NOTE | 2025-04-02 09:25 | PC.NURSE ---
[facility] 09[facility] 1615.
--- NOTE | 2025-04-02 10:11 | ESDS_ITS ---
Planned Discharge Date 04/02/25 DS: Providers Provider Date of admission: 03/31/25 02:49 Primary care physician: Physician No Primary/Family Admitting Provider: Greg Vaughn MD Attending Provider on Admission: Greg Vaughn MD Consults: 03/31/25 12:50 Referral Physical Therapy Routine Comment: Physician Instructions: Attending Provider on DC: Uriel Gomez MD Discharging Provider: Uriel Gomez MD DS: Diagnosis Problem List Completed Was Problem List Reviewed/Reconciled?: Yes Hospital Course Hospital Course Hospital course: An 84-year-old female patient with past medical history of hypothyroidism, constipation, was brought by ambulance from Dr. Guaman's office due to altered mental status. Patient was agitated and was placed on 5150, after evaluation patient was noted to have severe hypothyroidism with TSH level of 96.21, free T4 of 0.350, urine analysis showed UTI with urine WBCs of 15. Chest x-ray and head CT was within normal limits. Patient was admitted for treatment of acute encephalopathy secondary to hypothyroidism. Patient was started on levothyroxine IV 100 mcg, and was continued on 50 mcg of p.o. levothyroxine however during her stay patient was refusing to take the levothyroxine. Patient was informed that her condition is serious and she has to take the pills to prevent any worsening of her conditions. Patient eventually agreed on taking the levothyroxine pills. Today her TSH is 105 and her free T4 has improved to 0.49. Patient was cleared from crisis team to be discharged home. Patient today was deemed to be clinically stable for discharge a follow-up in outpatient settings and was given the following instructions: Follow up with your PCP within one week from discharge Use medications as prescribed, Use Levothyroxine as prescribed Not using levothyroxin may results in worsening of your symptoms, complications or even . In case of worsening of your symptoms please return to the ED as soon as possible Discharging diagnosis #Acute encephalopathy secondary to hypothyroidism #Hypothyroidism #Chronic constipation #UTI - Patient's plan and care discussed with my attending, Dr. Arlette Gomez MD Internal Medicine PGY-2 Status at Discharge Functional status at discharge: independent ambulation Time Spent with Patient Time attestation: Total time spent providing and/or coordinating discharge services: Time spent: Greater than 30 minutes Exam Vital Signs Temp Pulse Resp BP Pulse Ox O2 Del Method 98.3 F 60 20 131/63 H 100 Room Air 04/02/25 07:59 04/02/25 07:59 04/02/25 07:59 04/02/25 07:59 04/02/25 07:59 04/02/25 07:59 Narrative Exam GEN: AOx3, able to speak full sentences HEENT: NC/AC, oral mucosa moist, neck supple CVS: RRR, S1-S2 present, no murmurs appreciated RESP: CTAB GI: soft,non distended, non tender, NBS MSK: able to move all 4 limbs, no lower extremity edema SKIN: warm and dry WAITER/WAITRESS ECONOMY CLASS: CN II-XII and Sensation grossly intact. Discharge Plan Plan Patient Disposition: HOME (Self Care) Patient condition on transfer: Benefits outweigh risks Care Plan Goals: Follow up with your PCP within one week from discharge Use medications as prescribed, Use Levothyroxine as prescribed Not using levothyroxin may results in worsening of your symptoms, complications or even . In case of worsening of your symptoms please return to the ED as soon as possible Prescriptions/Referrals Prescriptions/Med Rec: New levothyroxine [Synthroid] 50 mcg tablet 50 mcg PO QDAY 30 Days Qty: 30 0RF Rx Instructions: Take one tablet by mouth every day amoxicillin-pot clavulanate 875-125 mg tablet 1 tab PO BID 4 Days Qty: 8 0RF Continued lactulose 10 gram/15 mL solution 30 ml PO BIDPRN PRN (Reason: constipation) Patient Comments: TAKE 30ML BY MOUTH TWICE A DAY Discontinued sulfamethoxazole-trimethoprim 800-160 mg tablet 1 tab PO Q12H Patient Comments: TAKE 1 TABLET BY MOUTH TWICE A DAY FOR 7 DAYS Referrals: No Primary/Family,Physician [Primary Care Provider] - Patient/Caregiver Discharge Instructions Discharge Activity: activity as tolerated Education Materials: Common Thyroid Problems, Discharge Instructions for ... Print Language: Occitan Stand Alone Forms: Misty Award Info., Patient Portal Info Letter, Work/Release Restrictions Discharge Order Discharge Orders: Discharge (Routine); Ordered 04/02/25 Ordered By: Uriel Gomez Quality Discharge Quality Measures VTE prophylaxis Attestestation Attestation I have examined the patient, reviewed labs and imaging findings, discussed the case with the resident(s), and reviewed entered orders. I agree with the plan of care as outlined in this note, with these additional summaries/recommendations: Time Spent: 35 minutes Patient medically cleared for discharge. She is alert and oriented x 3. Patient was counseled extensively on the importance of taking her levothyroxine. She showed understanding that by not taking levothyroxine her thyroid disease could lead to permanent disability and even . New prescription sent to pharmacy. Patient advised to follow-up with her PCP within 5 days of discharge. All questions answered to satisfaction. Dr. Arlette MD
--- NOTE | 2025-04-02 10:21 | PC.PT ---
PT eval only. Patient is I with transfers and ambulation without AD.
--- NOTE | 2025-04-02 11:04 | PC.CC ---
OSBALDO Chopra received a call from CATHERINE Hughes who reported the pt is medically cleared and ready for a mental health evaluation. OSBALDO Chopra will conduct a mental health eval for the pt.
--- NOTE | 2025-04-02 11:36 | PC.SS ---
FOREST FIRE EQUIPMENT OPERATOR confirmed with resident that patient is medically cleared for mental health evaluation. FOREST FIRE EQUIPMENT OPERATOR notified ED coordinator to conduct mental health evaluation.
--- NOTE | 2025-04-02 13:30 | PC.SS ---
Update: SINGER BACK TENDER confirmed with ED coordinator that patient has been cleared to d/c home with safety plan. SINGER BACK TENDER notified by ED coordinator that patient's daughter acknowledged plan will provide transportation on behalf of the patient. SINGER BACK TENDER updated charge nurse and bedside nurse.
--- NOTE | 2025-04-02 13:32 | PC.CC ---
OSBALDO Chopra completed a mental health evaluation with the pt at bedside in Room 266. Celery Stripper explained my role and the reasons why this bond writer was present. Pt understood. Pt was able too provide her demographics and person to contact. Pt reports she is fully ambulatory and does her own ADLs. Pt was AOx3, understood her whereabouts, reason why she was at the hospital and understands, but doesn't agree, to the 5150 Hold that was placed on her. Pt was in a good mood, cooperative, and pleasant. Pt stated she does not understand why the edge cutter were called. Pt denies being a DTS/DTO. Pt reports that she got into a verbal altercation with the medical staff at her PCPs office and LE responded. Pt reported that in no way was she wanting to hurt herself or hurt anyone else. Celery Stripper expressed the concerns of the reasons why she was initially placed on the 5150 Hold. Pt was receptive and was adament that she is not a danger to anyone, nor herself. Pt denie SI/HI, denies AVH, denies self harm, denies substance use/abuse. Pt stated she is a [employer] woman and eats clean foods and believes in health. Pt admits she is supposed to take medications for a thyroid issues, but says she does not like the way it makes her feel so she does not take it. Pt reports she takes vitamins and other natural remedies to treat her thyroid issue. Pt reports she walks daily, exercises and at times will jog. Pt reports she is very active and is friendly with all who she encounters. Pt admitted to the verbal altercation with the medical staff and says it will never happen again. Celery Stripper spoke with pts daughter Dennis [phone] who stated she and another family member are able to stay with the mother upon d/c to ensure she is safe and make a doctors appointment for her. Dennis has worries of possible dementia sxs, but the pt is not formally diagnosed with dementia. Pt was viewed to be genuine and honest in her responses. Pt was viewed to be direct and forthcoming with her statements. At this time, ASW does not have any concerns with the pts previous hold reasons which were DTS/DTO. ASW provided community resources, such as [facility] and [facility] [facility] information, as well as the [facility] Community resource guide, which also includes the medical providers in the [place] area. Pt was appreciative of the resources and stated she would reach out to [facility]. Person to Notify: Dennis Thao [phone] [facility] [phone] Safety Plan: pt will f/u with a new PCP and daughter will supervise the mother. Needs: None at this time. Concerns: None at this time.
--- NOTE | 2025-04-02 14:12 | PC.CC ---
OSBALDO Chopra completed a mental health evaluation with the pt at bedside in Room 266. Farm Instructor explained my role and the reasons why this expert medical writer was present. Pt understood. Pt was able too provide her demographics and person to contact. Pt reports she is fully ambulatory and does her own ADLs. Pt was AOx3, understood her whereabouts, reason why she was at the hospital and understands, but doesn't agree, to the 5150 Hold that was placed on her. Pt was in a good mood, cooperative, and pleasant. Pt stated she does not understand why the director of retail were called. Pt denies being a DTS/DTO. Pt reports that she got into a verbal altercation with the medical staff at her PCPs office and LE responded. Pt reported that in no way was she wanting to hurt herself or hurt anyone else. Farm Instructor expressed the concerns of the reasons why she was initially placed on the 5150 Hold. Pt was receptive and was adament that she is not a danger to anyone, nor herself. Pt denie SI/HI, denies AVH, denies self harm, denies substance use/abuse. Pt stated she is a [employer] woman and eats clean foods and believes in health. Pt admits she is supposed to take medications for a thyroid issues, but says she does not like the way it makes her feel so she does not take it. Pt reports she takes vitamins and other natural remedies to treat her thyroid issue. Pt reports she walks daily, exercises and at times will jog. Pt reports she is very active and is friendly with all who she encounters. Pt admitted to the verbal altercation with the medical staff and says it will never happen again. Farm Instructor spoke with pts daughter Dennis [phone] who stated she and another family member are able to stay with the mother upon d/c to ensure she is safe and make a doctors appointment for her. Dennis has worries of possible dementia sxs, but the pt is not formally diagnosed with dementia. Pt was viewed to be genuine and honest in her responses. Pt was viewed to be direct and forthcoming with her statements. At this time, ASW does not have any concerns with the pts previous hold reasons which were DTS/DTO. ASW provided community resources, such as [facility] and [facility] information, as well as the [facility] Community resource guide, which also includes the medical providers in the [place] area. Pt was appreciative of the resources and stated she would reach out to [facility]. Person to Notify: Dennis Thao [phone] [facility] [phone] Safety Plan: pt will f/u with a new PCP and daughter will supervise the mother. Needs: None at this time. Concerns: None at this time.
== END 2025-04-02 17:10 | disposition home or self-care (01) ==
LOC: SERX 03-31 02:54 → SERHOLD 03-31 23:13 → S2NX 03-31 23:13
PROVIDERS: Emergency Medicine; Internal Medicine; Admitting Provider Student in an Organized Health Care Education/Training Program; Emergency Provider Emergency Medicine; Visit Provider Student in an Organized Health Care Education/Training Program
DX: E03.9 Hypothyroidism, unspecified (principal); G93.40 Encephalopathy, unspecified; K59.09 Other constipation; N17.9 Acute kidney failure, unspecified; N39.0 Urinary tract infection, site not specified; Z79.890 Hormone replacement therapy; Z82.3 Family history of stroke; Z82.49 Family history of ischemic heart disease and other diseases of the circulatory system; Z87.19 Personal history of other diseases of the digestive system; Z01.810 Encounter for preprocedural cardiovascular examination
CPT/HCPCS: 36415; 71045; 80053; 81001; 83605; 83690; 83735; 83880; 84100; 84145; 84439; 84443; 84484; 85025; 85610; 85730; 87086; 93005; 96127; 96365; 96372; 97162; 99285; G0378; J0696; J1644; J1720; J2060; A9270

== ENCOUNTER 2025-04-02 22:50 | Emergency (ER) | payer MEDICARE, BC, SELFPAY ==
[2025-04-02 22:52] VITALS: PULSE 65; RESP 18; O2SAT 97
[2025-04-02 23:17] VITALS: BP 133/87; PULSE 76; RESP 16; TEMP 36.9; O2SAT 99
--- NOTE | 2025-04-02 23:46 | XR_ITS ---
Examination: Shoulder,left, 3 views Technique: Shoulder AP internal rotation, AP external rotation, Y view shoulder, 3 views Exam date and time :April 02, 2025 at 11:50 PM INDICATIONS: Left shoulder pain today. FINDINGS: Moderate osteoarthritis glenohumeral joint No fracture or shoulder dislocation IMPRESSION: Moderate osteoarthritis glenohumeral joint
--- NOTE | 2025-04-02 23:46 | PD.EDEXREM ---
ED Extremity Problem RME/HPI General Chief complaint: Extremity Problem,Nontraumatic Stated complaint: LEFT SHOULDER PAIN Time Seen by Provider: 04/02/25 23:34 Source: patient Arrival date/time: 04/02/25 22:50 84-year-old female presents to the ED with a complaint of left shoulder pain after leaning over and attempting to pick something out of a drawer. Mode of arrival: ambulatory Limitations: no limitations RME / HPI MD Complaint: extremity pain and joint paint Onset (ago): hour(s) Consistency: constant Location: left and upper extremity Severity scale (1-10): 5 Quality: aching Radiation: none Relieving factors: nothing Related Data Home Medications ?Medication ?Instructions ?Recorded ?Confirmed lactulose 10 gram/15 mL oral 30 ml PO BIDPRN PRN constipation 03/31/25 03/31/25 solution Previous Rx's ?Medication ?Instructions ?Recorded levothyroxine 50 mcg tablet 50 mcg PO QDAY 30 days #30 tabs 04/01/25 (Synthroid) amoxicillin 875 mg-potassium 1 tab PO BID 4 days #8 tabs 04/02/25 clavulanate 125 mg tablet Allergies Allergy/AdvReac Type Severity Reaction Status Date / Time No Known Allergies Allergy Verified 03/30/25 19:29 Review of Systems Constitutional Constitutional: Reports system reviewed and no additional complaints, except as documented Eyes Eyes: Reports system reviewed and no additional complaints, except as documented, Denies dry eyes, Denies exophthalmos and Reports floaters Cardiovascular Cardiovascular: Denies chest pain with activity and Denies claudication ED Exam General Limitations: Present no limitations General appearance: Present alert and in no apparent distress Head Head exam: Present atraumatic Eye Eye exam: Present normal appearance and EOMI ENT ENT exam: Present normal exam, normal oropharynx and mucous membranes moist Neck Neck exam: Present normal inspection, full ROM, trachea midline and tenderness (Tender to palpation in the left shoulder between the neck and the head of the humerus. It appears to be symmetrical when compared to the right. Patient retains full range of motion of the left and right upper extremity. Neurovascular is intact. Patient demonstrates a good panel maker bilaterally.) Chest Chest inspection: Present normal inspection and symmetric chest wall rise Extremities Exam Extremities exam: Present normal inspection, full ROM and tenderness (Tenderness to palpation is the left upper shoulder. [place] between the neck and the head of the humerus) Back Exam Back exam: Present normal inspection and full ROM Neurological Exam Neurological exam: Present alert and oriented X3 Psychiatric Psychiatric exam: Present normal affect and normal mood Skin Skin exam: Present warm, dry, intact and normal color Course Course Course Narrative: Patient will have x-ray of her left shoulder. Quality Measures none Orders Category Date Time Status XR shoulder LT min 2V Stat Exams 04/02/25 23:46 Taken Done Vital Signs Vital signs: Vital Signs Temperature 98.4 F 04/02/25 23:17 Pulse Rate 76 04/02/25 23:17 Respiratory Rate 16 04/02/25 23:17 Blood Pressure 133/87 H 04/02/25 23:17 Pulse Oximetry (%) 99 04/02/25 23:17 Oxygen Delivery Method Room Air 04/02/25 23:17 Pulse ox is 99% on room air Extremity Problem MDM Narrative MDM Narrative:: Patient will have an x-ray of her left shoulder and more than likely she will be discharged in no apparent distress to home. She is to follow-up primary care physician in 1 week or less Patient data External records reviewed:: Other (specify) Clinical information provided by:: patient and none Social determinants that could affect healthcare access:: none Patient has the following chronic illnesses:: Arthritis How is presenting disease/condition affected by chronic disease/condition?: no chronic disease Evaluation data The following diagnostics were reviewed and interpreted by me:: radiology exam(s) Lab and/or radiology exams considered but not ordered:: Radiology results are negative for any bony deformity, apparent spasm, Interpretation Summary: Left shoulder strain Medications / Prescriptions Medications or Prescriptions considered but not ordered:: N/A Medication administrations:: N/A Consultations Consultation(s) initiated? (list below): No Diagnosis Extremity Problem Differential Diagnosis: herpes zoster, superficial thrombophlebitis and deep venous thrombosis of upper extremity Most likely diagnosis given after review of the tests above:: N/A Admission Indicated Admission indicated?: not indicated Admission Request Was there a request for admission?: No Disposition Plan Disposition Plan: Discharge Discharge Attestation Discharge Attestation: The patient and all family members were given an opportunity to ask questions and understood the discharge instructions. Discharge instructions specifically effects, indications for sooner follow up or return to the emergency department, and the expected course of current diagnosis. Patient condition: Stable Discharge Plan Plan Patient Disposition: HOME (Self Care) Discharge Disposition comment: Patient will be discharged in no apparent distress Patient condition on transfer: Stable Prescriptions/Referrals Prescriptions/Med Rec: No Action lactulose 10 gram/15 mL solution 30 ml PO BIDPRN PRN (Reason: constipation) Patient Comments: TAKE 30ML BY MOUTH TWICE A DAY levothyroxine [Synthroid] 50 mcg tablet 50 mcg PO QDAY 30 Days Qty: 30 0RF Rx Instructions: Take one tablet by mouth every day amoxicillin-pot clavulanate 875-125 mg tablet 1 tab PO BID 4 Days Qty: 8 0RF Referrals: No Primary/Family,Physician [Primary Care Provider] - In 1 week Problem List Clinical Impression: Spasm Impression comment: Patient will be discharged to home in no apparent distress, she is to follow-up primary care physician in 1 week or sooner if worse. Patient/Caregiver Discharge Instructions Print Language: Romanian Stand Alone Forms: Misty Award Info., Patient Portal Info Letter PA/NUT DEHYDRATOR OPERATOR Supervising Physician PA/NUT DEHYDRATOR OPERATOR Supervising Physician: Kt Escalante
[2025-04-03 01:39] VITALS: RESP 16
== END 2025-04-03 01:39 | disposition home or self-care (01) ==
PROVIDERS: Emergency Provider Emergency Medicine
DX: M62.838 Other muscle spasm (principal)
CPT/HCPCS: 73030; 99283

== ENCOUNTER → 2025-06-06 | Outpatient (CLI) | payer MEDICARE, BC, SELFPAY ==
[2025-06-06 16:56] LABS: Glucose Estimated Average 108 mg/dL (80-131); Hemoglobin A1C 5.4 % Hgb (4.8-6.0)
[2025-06-06 17:06] LABS: Free T4 (Free Thyroxine) 1.34 ng/dL (0.89-1.76); Thyroid Stimulating Hormone 5.98 uIU/mL (0.55-4.78)
== END | disposition home or self-care (01) ==
LOC: COPL 15:58
PROVIDERS: PCP Family Medicine; Referring Provider Family Medicine; Visit Provider Family Medicine
DX: E03.9 Hypothyroidism, unspecified (principal); R73.01 Impaired fasting glucose
CPT/HCPCS: 36415; 83036; 84439; 84443

== ENCOUNTER 2025-10-01 20:27 | Emergency (ER) | payer MEDICARE, BC, SELFPAY ==
[2025-10-01 20:49] VITALS: BP 154/77; PULSE 64; RESP 20; TEMP 36.4; O2SAT 100
--- NOTE | 2025-10-01 20:50 | XR_ITS ---
Examination: CT abdomen and pelvis without contrast. Coronal 3-D reconstructions. Sagittal 2-D reconstructions. Date and time of exam: October 01, 2025 10:30 p.m., comparison September 03, 2024 Indications lower abdominal pain beginning 3 days ago, history kidney stones CTDI: vol (mGy): 5.53 DLP: (mGycm): 256 Technique: Axial images of the abdomen have been obtained, 3 mm slice thickness Intravenous contrast material has not been administered. Low dose protocols were performed. One or more of the following dose reduction techniques were used; automated exposure control, adjustment of the mA and/or KV according to patient size, use of iterative reconstruction technique. Findings: No focal liver or splenic lesions Contracted gallbladder No pancreatic mass No renal or ureteral calculi Abundant stool and air throughout the colon Aorta normal size No pericecal inflammatory change No diverticulitis Urinary bladder intact Atrophic uterus No pelvic mass Advanced degenerative disc disease L2-L3, L4-L5, L5-S1 IMPRESSION: Contracted gallbladder No renal or ureteral calculi, no hydronephrosis Large amount of stool throughout the colon No CT findings of appendicitis are diverticulitis
--- NOTE | 2025-10-01 20:51 | EDRME_ITS ---
Rapid Medical Screening Exam [facility] Arrival date/time: 10/01/25 20:27 This is a case of 85-year-old female who came in in the emergency room due to generalized abdominal pain with nausea vomiting and constipation today worsening of the symptoms this patient decided to sought consult here in the emergency room patient is currently taking medication for his urinary tract infection Chief Complaint: Abdominal Pain Vital signs: Vital Signs Temperature 97.6 F 10/01/25 20:49 Pulse Rate 64 10/01/25 20:49 Respiratory Rate 20 10/01/25 20:49 Blood Pressure 154/77 H 10/01/25 20:49 Pulse Oximetry (%) 100 10/01/25 20:49 Oxygen Delivery Method Room Air 10/01/25 20:49 Exam: Moderate tenderness left upper and left lower quadrant no guarding no rebound no rigidity Clinical Impression: Abdominal pain
[2025-10-01 21:14] LABS: Collection Type, Urine Voided
[2025-10-01 21:23] LABS: Bilirubin,Urine Negative (Negative); Blood,Urine Negative (Negative); Clarity,Urine Clear (Clear/Hazy); Color,Urine Colorless (Lt Yel-Yel); Glucose, Urine Negative (Negative); Ketones,Urine Negative (Negative); Leukocyte Esterase,Urine Positive (Negative); Nitrite,Urine Negative (Negative); PH,Urine 6.5 (5.0-7.0); Protein,Urine Negative (Neg - Trace); RBC,Urine 3 /hpf (0-3); Specific Gravity,Urine 1.008 (1.001-1.035); Squamous Epithelial Cell,Urine < 1 /hpf (0-5); Urobilinogen,Urine Negative mg/dL (0.0-1.0); WBC,Urine 99 /hpf (0-5)
[2025-10-01 21:29] LABS: Basophils # (Auto) 0.0 Thou/mm3 (0.0-0.2); Basophils % (Auto) 1 % (0-2.5); Eosinophils # (Auto) 0.1 Thou/mm3 (0.0-0.5); Eosinophils % (Auto) 1 % (0-10); Hematocrit 33.4 % (36.0-46.0); Hemoglobin 11.3 g/dL (12.0-16.0); Immature Granulocytes Auto 0.01 Thou/mm3 (0.00-0.00); Lymphocytes # (Auto) 1.5 Thou/mm3 (1.0-4.8); Lymphocytes % (Auto) 29 % (10-50); Mean Corpuscular HGB Conc 33.8 g/dl (31.0-37.0); Mean Corpuscular Hemoglobin 29.2 pg (25.0-35.0); Mean Corpuscular Volume 86 fL (80-100); Monocytes # (Auto) 0.5 Thou/mm3 (0.0-0.8); Monocytes % (Auto) 10 % (0-12); Neutrophils # (Auto) 3.1 Thou/mm3 (1.8-7.7); Neutrophils % (Auto) 59 % (37-80); Nucleated Red Blood Cell # 0.00 Thou/mm3 (0.00-0.00); Nucleated Red Blood Cell % 0 /100 WBC (0); Platelet Count 229 Thou/mm3 (140-440); RDW Standard Deviation 42.2 fL (36.4-46.3); Red Blood Count 3.87 Miln/mm3 (4.00-5.20); White Blood Count 5.3 Thou/mm3 (3.6-11.0)
[2025-10-01 21:52] LABS: Alanine Aminotransferase 13 U/L (10-49); Albumin, Serum 4.6 gm/dL (3.4-4.8); Albumin/Globulin Ratio 1.9 (1.2-2.2); Alkaline Phosphatase 57 U/L (46-116); Anion Gap 10 (7-16); Aspartate Amino Transferase 26 U/L (0-34); BUN/Creatinine Ratio 15 Ratio (12-20); Bilirubin,Total 0.4 mg/dL (0.3-1.2); Blood Urea Nitrogen 15 mg/dL (9-23); Calcium 9.6 mg/dL (8.3-10.6); Calcium (Corrected) 9.6 mg/dL (8.5-10.1); Carbon Dioxide 26.5 mMol/L (20.0-31.0); Chloride 105 mMol/L (98-107); Creatinine (Component) 1.0 mg/dL (0.6-1.3); Globulin 2.4 gm/dL (2.3-3.5); Glucose 83 mg/dL (74-106); Lipase 116 U/L (12-53); Osmolality,Calculated 281 (275-295); Potassium 4.0 mMol/L (3.4-5.1); Sodium 141 mMol/L (136-145); Total Protein 7.0 gm/dL (5.7-8.2); eGFR 55 See Note
[2025-10-01 22:55] VITALS: BP 171/80; PULSE 61; RESP 18; TEMP 36.7; O2SAT 99
--- NOTE | 2025-10-01 23:13 | PD.EDABDPN ---
ED Abdominal Pain RME/HPI General Chief Complaint: Abdominal Pain Stated complaint: LOWER ABD PAIN Time seen by provider: 10/01/25 21:03 Arrival date/time: 10/01/25 20:27 RME / HPI RME / HPI narrative: 10/01/25 20:27 This is a case of 85-year-old female who came in in the emergency room due to generalized abdominal pain with nausea vomiting and constipation today worsening of the symptoms this patient decided to sought consult here in the emergency room patient is currently taking medication for his urinary tract infection Dr. Jacinto?s Main ED Evaluation: 85yo female presents to the ED for complaints of generalized abdominal bloating and constipation x 3 days. Patient states she walks daily and tries to have a bowel movement daily, but has a hard time due to her hemorrhoids. Patient denies any N/V, fever, chills, or any other associated symptoms. Related Data Home Medications ?Medication ?Instructions ?Recorded ?Confirmed lactulose 10 gram/15 mL oral 30 ml PO BIDPRN PRN constipation 03/31/25 03/31/25 solution Previous Rx's ?Medication ?Instructions ?Recorded peg 3350-electrolytes 236 240 ml PO Q10M #4,000 mL 10/01/25 gram-22.74 gram-6.74 gram-5.86 gram solution (Golytely) Allergies Allergy/AdvReac Type Severity Reaction Status Date / Time Penicillins Allergy Verified 10/01/25 20:28 Review of Systems Review of Systems Systems Reviewed: All systems reviewed, normal except as documented Past Medical History Past Medical History NEUROLOGIC: Negative Neurological Disorders or Seizures CARDIAC: Negative Cardiac Disorders or Congestive Heart Failure RESPIRATORY: Negative Chronic Obstructive Pulmonary Disease (COPD) or Asthma GASTROINTESTINAL: Positive Gastrointestinal Disorders (Constipation) and Hemorrhoids GENITOURINARY: Negative Genitourinary Disorders or Renal Disease REPRODUCTIVE: Positive Uterine Prolapse MUSCULOSKELETAL: Positive Arthritis; Negative Musculoskeletal Disorders ENT: Positive Deafness ([place]) ENDOCRINE: Positive Endocrine Disorders and Hypothyroidism; Negative Diabetes Mellitus Type 1 or Diabetes Mellitus Type 2 HEMATOLOGIC: Negative Blood Disorders or Sickle Cell Disease PSYCHO/SOCIAL: Positive Anxiety OTHER HISTORY: Positive Falls; Negative Autoimmune Disease, Blood Transfusions or Anesthesia Reactions Family History FAMILY HISTORY: Positive Family Respiratory Disorders and Family Cardiac Disorders; Negative Family Psychiatric Problems, Family Gastrointestinal Problems, Family Cancer, Family Surgery or Family Anesthesia Reaction Surgical History SURGICAL: Positive Lumpectomy Social History SMOKING STATUS: Never smoker ED Exam Narrative Physical exam: Generally patient is alert in no obvious distress, heart regular rate and rhythm, lungs clear to auscultation equal bilaterally, abdomen is soft distended tympanic but nontender, neurologic exam shows [place] Coma Scale of 15 Course Quality Measures none Orders Category Date Time Status CT abdomen pelvis wo con Stat Exams 10/01/25 20:50 Completed CBC Stat Lab 10/01/25 21:18 Completed CMP [Comprehensive Metabolic Panel] Stat Lab 10/01/25 21:18 Completed Lipase Stat Lab 10/01/25 21:18 Completed Urinalysis Stat Lab 10/01/25 21:04 Completed Urine Culture Stat Lab 10/01/25 21:04 Received Ketorolac Inj [Toradol Inj] Med 10/01/25 20:50 Discontinued 30 mg IM X1 ONE Ondansetron Odt [Zofran Odt] Med 10/01/25 20:50 Discontinued 4 mg PO X1 ONE Vital Signs Vital signs: Vital Signs Temperature 97.6 F 10/01/25 20:49 Pulse Rate 64 10/01/25 20:49 Respiratory Rate 20 10/01/25 20:49 Blood Pressure 154/77 H 10/01/25 20:49 Pulse Oximetry (%) 100 10/01/25 20:49 Oxygen Delivery Method Room Air 10/01/25 20:49 Abdominal Pain MDM MDM Narrative MDM Narrative:: Scribe Attestation: 10/01/25 - Lucie Pierre, am scribing for and in the presence of Dr. Jacinto. I interpreted all labs. Lipase is slightly elevated. CT scan done the abdomen and pelvis with IV contrast shows no pancreatic pathology. It does show evidence for constipation. No obstruction. No free air. No diverticulitis. No evidence of acute disease process other than the constipation. Patient is alert and oriented and in no obvious distress. Patient will be discharged on GoLytely to be taken as prescribed. Follow-up with her doctor. Return to ER as needed or if condition worsens. Patient data External records reviewed:: [facility] previous records (Per chart review, patient was seen here on 04/02/25 for spasm.) Clinical information provided by:: patient Social determinants that could affect healthcare access:: none Patient has the following chronic illnesses:: none How is presenting disease/condition affected by chronic disease/condition?: no chronic disease Evaluation data The following diagnostics were reviewed and interpreted by me:: lab results and radiology exam(s) Lab and/or radiology exams considered but not ordered:: none Interpretation Summary: [facility] Report Signed Patient: LAKISHA MCCARTY Record#: [id number] Birthdate: 1940 Age/Sex: 85 / F Location: [facility] Attending Dr: Ordering Physician: Sushil Griffin PA-C Date of Service: 10/01/25 Procedure(s): CT abdomen pelvis wo con Accession Number(s): [id number] cc: Rashel Rodríguez MD; Hemalatha Hernandez MD; Sushil Griffin PA-C~ Examination: CT abdomen and pelvis without contrast. Coronal 3-D reconstructions. Sagittal 2-D reconstructions. Date and time of exam: October 01, 2025 10:30 p.m., comparison September 03, 2024 Indications lower abdominal pain beginning 3 days ago, history kidney stones CTDI: vol (mGy): 5.53 DLP: (mGycm): 256 Technique: Axial images of the abdomen have been obtained, 3 mm slice thickness Intravenous contrast material has not been administered. Low dose protocols were performed. One or more of the following dose reduction techniques were used; automated exposure control, adjustment of the mA and/or KV according to patient size, use of iterative reconstruction technique. Findings: No focal liver or splenic lesions Contracted gallbladder No pancreatic mass No renal or ureteral calculi Abundant stool and air throughout the colon Aorta normal size No pericecal inflammatory change No diverticulitis Urinary bladder intact Atrophic uterus No pelvic mass Advanced degenerative disc disease L2-L3, L4-L5, L5-S1 IMPRESSION: Contracted gallbladder No renal or ureteral calculi, no hydronephrosis Large amount of stool throughout the colon No CT findings of appendicitis are diverticulitis Dictated By: Rashel Rodríguez MD Signed By: <Electronically signed by Rashel Rodríguez MD in [place]> 10/01/25 2089 Medications / Prescriptions Medications or Prescriptions considered but not ordered:: none Medication administrations:: Medication Administration History Discontinued Medications Ketorolac Tromethamine (Ketorolac Inj 30 Mg/Ml Vial) 30 mg IM X1 ONE Stop: 10/01/25 20:51 Ondansetron HCl (Ondansetron Odt 4 Mg Tabrap) 4 mg PO X1 ONE; Protocol Stop: 10/01/25 20:51 none Consultations Consultation(s) initiated? (list below): No Diagnosis Differential diagnosis abdominal pain: other (See MDM) Most likely diagnosis given after review of the tests above:: see clinical impression below Admission Indicated Admission indicated?: not indicated Admission Request Was there a request for admission?: No Disposition Plan Disposition Plan: Discharge Discharge Attestation Discharge Attestation: The patient and all family members were given an opportunity to ask questions and understood the discharge instructions. Discharge instructions specifically effects, indications for sooner follow up or return to the emergency department, and the expected course of current diagnosis. Patient condition: Stable Discharge Plan Plan Patient Disposition: HOME (Self Care) Prescriptions/Referrals Prescriptions/Med Rec: New peg 3350-electrolytes [Golytely] 236-22.74-6.74 -5.86 gram recon soln 240 ml PO Q10M Qty: 4000 0RF Rx Instructions: until fecal effluent is clear No Action lactulose 10 gram/15 mL solution 30 ml PO BIDPRN PRN (Reason: constipation) Patient Comments: TAKE 30ML BY MOUTH TWICE A DAY Referrals: Hemalatha Cruz MD [Primary Care Provider, Family Practice] - In 1 week Problem List Clinical Impression: Constipation Patient/Caregiver Discharge Instructions Print Language: Portuguese Stand Alone Forms: Misty Award Info., Patient Portal Info Letter
[2025-10-01 23:51] VITALS: RESP 14
== END 2025-10-01 23:52 | disposition home or self-care (01) ==
PROVIDERS: Physician Assistant; Emergency Provider Emergency Medicine; PCP Family Medicine
DX: N39.0 Urinary tract infection, site not specified (principal); K64.9 Unspecified hemorrhoids; K59.00 Constipation, unspecified
CPT/HCPCS: 36415; 74176; 80053; 81001; 83690; 84703; 85025; 85610; 85730; 87086; 99283

== ENCOUNTER → 2025-10-01 | Outpatient (CLI) | payer MEDICARE, BC, SELFPAY ==
[2025-10-01 16:02] LABS: Collection Type, Urine Clean Catch
[2025-10-01 16:39] LABS: Free T4 (Free Thyroxine) 1.25 ng/dL (0.89-1.76); Thyroid Stimulating Hormone 8.13 uIU/mL (0.55-4.78)
[2025-10-01 16:40] LABS: Bilirubin,Urine Negative (Negative); Blood,Urine Trace (Negative); Clarity,Urine Clear (Clear/Hazy); Color,Urine Colorless (Lt Yel-Yel); Glucose, Urine Negative (Negative); Ketones,Urine Negative (Negative); Leukocyte Esterase,Urine Positive (Negative); Nitrite,Urine Negative (Negative); PH,Urine 6.0 (5.0-7.0); Protein,Urine Negative (Neg - Trace); RBC,Urine 2 /hpf (0-3); Specific Gravity,Urine 1.005 (1.001-1.035); Squamous Epithelial Cell,Urine < 1 /hpf (0-5); Urobilinogen,Urine Negative mg/dL (0.0-1.0); WBC,Urine 38 /hpf (0-5)
== END | disposition home or self-care (01) ==
PROVIDERS: PCP Family Medicine; Referring Provider Family Medicine; Visit Provider Family Medicine
DX: R30.0 Dysuria (principal); E03.9 Hypothyroidism, unspecified
CPT/HCPCS: 36415; 81001; 84439; 84443; 87086

== ENCOUNTER → 2025-10-19 | Outpatient (CLI) | payer MEDICARE, BC, SELFPAY ==
--- NOTE | 2025-10-19 10:21 | XR_ITS ---
EXAMINATION: Cervical spine 3 views TECHNIQUE: AP lateral coned AP odontoid cervical spine 3 views Date and time: October 19, 2025, 10:35 a.m.,. INDICATIONS: Injury to the neck 1 month ago, neck pain. FINDINGS: Straightening of the normal cervical lordosis. No cervical fracture. Intact odontoid. Moderate disc narrowing C4-C5 Advanced disc narrowing C5-C6, C6-C7 IMPRESSION: No cervical fracture Advanced degenerative disc disease C5-C6, C6-C7
== END | disposition home or self-care (01) ==
LOC: SDIM 09:50 → CDIM 10-22 14:32
PROVIDERS: PCP Family Medicine; Referring Provider Family Medicine; Visit Provider Family Medicine
DX: M50.322 Other cervical disc degeneration at C5-C6 level (principal)
CPT/HCPCS: 72040